=== PATIENT | female | born 1980 | race Caucasian/White ===

== ENCOUNTER 2017-03-29 05:10 | Emergency (ER) | payer BC ==
[~2017-03-29 05:10] MED LIST: CYMBALTA20 M1 PO; KEPPRA500 MG PO; LORAZEPAM0.5 MG PO
[2017-03-29 06:36] LABS: BASOPHIL % 0.4 % (0-2); PLATELET COUNT 360 x10^3mcL (130-400); RED CELL DISTRIBUTION WIDTH 14.1 % (11.5-14.5)
[2017-03-29 06:43] LABS: CALCIUM 8.5 mg/dL (8.5-10.1); CARBON DIOXIDE 25.1 mmol/L (21-32); CHLORIDE SERUM 106 mmol/L (98-107); CREATININE SERUM 0.7 mg/dL (0.6-1.0); GFR1 > 60 mL/min; GLUCOSE SERUM 108 mg/dL (74-106); POTASSIUM SERUM 3.6 mmol/L (3.5-5.1); SODIUM SERUM 142 mmol/L (136-145)
[2017-03-29 06:48] LABS: ALBUMIN 3.4 g/dL (3.4-5.0); ALKALINE PHOSPHATASE 64 U/L (46-116); ALT/SGPT 21 U/L (14-59); AST/SGOT 19 U/L (15-37); BILIRUBIN TOTAL 0.2 mg/dL (0.20-1.00); MAGNESIUM 2.1 mg/dL (1.8-2.4); TOTAL PROTEIN, SERUM 6.8 g/dL (6.4-8.2)
[2017-03-29 08:25] LABS: AMPHETAMINE QUAL UR NONE DETECTED (NEG <=1000)
[2017-03-29 10:32] VITALS: BP 128/85
== END 2017-03-29 10:32 | disposition home or self-care (01) ==
LOC: ED 05:10
PROVIDERS: Emergency Medicine
DX: R41.82 Altered mental status, unspecified (principal); F32.1 Major depressive disorder, single episode, moderate; E16.2 Hypoglycemia, unspecified; Z79.899 Other long term (current) drug therapy; F10.129 Alcohol abuse with intoxication, unspecified; F99 Mental disorder, not otherwise specified
CPT/HCPCS: G0480; J2405; J3411; J3475; J3490; J7030